=== PATIENT | male | born 1970 | race Caucasian/White ===

== ENCOUNTER 2019-08-18 17:26 | Emergency (ER) | payer OTHER ==
[~2019-08-18] VITALS: Ht 165.1 cm; Wt 82.6 kg
[~2019-08-18 17:26] MED LIST: BENA20TA4 PO; TRAM50TA2 PO
[2019-08-18 17:40] VITALS: BP 201/96; PULSE 116; RESP 16; Ht 165.1 cm; Wt 82.6 kg
== END 2019-08-18 18:23 | disposition home or self-care (01) ==
LOC: E/R 17:26
DX: I10 Essential (primary) hypertension (principal); Z76.0 Encounter for issue of repeat prescription
CPT/HCPCS: 99283